=== PATIENT | male | born 1935 | race Caucasian/White ===

== ENCOUNTER 2021-05-07 08:12 | Emergency (ER) | payer MEDICARE ==
[~2021-05-07] VITALS: Ht 182.9 cm; Wt 81.8 kg
[2021-05-07] MEDS ORDERED: ELIQUIS5 MG PO (08:45)
[2021-05-07] MEDS ORDERED: PRESERVISION PO (08:45)
[2021-05-07] MEDS ORDERED: SIMVASTATIN10 MG PO (08:46)
[2021-05-07] MEDS ORDERED: FUROSEMIDE20 MG PO (08:46)
[2021-05-07] MEDS ORDERED: LISINOPRIL10 MG PO (08:46)
[2021-05-07] MEDS ORDERED: METOPROL TAR25 MG PO (08:47)
[2021-05-07] MEDS ORDERED: GLUCOSAMINE500 M3 PO (08:47)
[2021-05-07] MEDS ORDERED: PROTONIX40 M2 PO (08:48)
[2021-05-07 08:53] LABS: HEMATOCRIT 25.5 % (39.0-50.0); MEAN CORPUSCULAR HGB 38.5 pG CALC (26.0-32.0); MEAN CORPUSCULAR HGB CONC 32.2 g/dL CAL (32.0-36.0); RED BLOOD COUNT 2.13 mill/uL (4.70-6.10); RED CELL DISTRI WIDTH 22.2 % (11.5-15.5)
[2021-05-07 09:00] LABS: HEMOGLOBIN 8.2 g/dl (14.0-18.0); IMMATURE GRANULOCYTES 6.3 % (0.0-5.0); MEAN CELL VOLUME 119.7 fL CALC (80.0-100.0); PLATELET COUNT 184 thou/uL (130-400)
[2021-05-07 09:01] LABS: MANUAL DIFFERENTIAL YES
[2021-05-07 09:24] LABS: PROTHROMBIN TIME 10.7 SECONDS (9.0-12.5)
[2021-05-07 09:32] LABS: BAND 4 % (0-8); NUCLEATED RED BLOOD CELL 1 /100WBC (0-1); PLATELET ESTIMATE NORMAL
[2021-05-07 09:33] LABS: SCHISTOCYTES FEW
[2021-05-07 09:35] LABS: ACANTHOCYTES FEW; TEAR DROP CELLS MODERATE
[2021-05-07 09:36] LABS: POIKILOCYTOSIS MODERATE
[2021-05-07 10:28] LABS: URINE BILIRUBIN - DIPSTICK NEGATIVE (NEGATIVE); URINE BLOOD DIPSTICK NEGATIVE (NEGATIVE); URINE COLOR YELLOW; URINE GLUCOSE - DIPSTICK NEGATIVE (NEGATIVE); URINE KETONE NEGATIVE (NEGATIVE); URINE LEUK ESTERASE NEGATIVE (NEGATIVE); URINE NITRITE - DIPSTICK NEGATIVE (Negative); URINE PROTEIN - DIPSTICK NEGATIVE (NEG-TRACE); URINE SPECIFIC GRAVITY <=1.005; URINE UROBILINOGEN - DIPSTICK 0.2 E.U./dL (0.2)
[2021-05-07 10:47] LABS: ALBUMIN 3.6 g/dL (3.2-5.0); ALKALINE PHOSPHATASE 83 u/l (38-126); BUN 19 mg/dL (8-23); BUN/CREATININE RATIO 17 (12-20 (CALC)); CARBON DIOXIDE 24 mmol/l (22-30); CHLORIDE 100 mmol/l (95-108); CREATININE 1.1 mg/dL (0.7-1.3); GFR > 60 ML/MIN (>=60 (CALC)); GFR FOR AFR.AMER. > 60 ML/MIN (>=60 (CALC)); SGOT/AST 26 u/l (19-48); SODIUM 132 mmol/l (137-146); TOTAL PROTEIN 6.4 g/dL (6.3-8.2)
[2021-05-07 10:55] LABS: ANION GAP 12 (6-22 (CALC)); BILIRUBIN, TOTAL 3.3 mg/dL (0.0-1.4); POTASSIUM 4.4 mmol/l (3.5-5.1)
[2021-05-07] MEDS ORDERED: FEOSOL45 MG PO (11:53)
[2021-05-07 12:01] VITALS: BP 151/68
== END 2021-05-07 12:02 | disposition home or self-care (01) ==
LOC: ED 08:12
PROVIDERS: Emergency Medicine
DX: S80.12XA Contusion of left lower leg, initial encounter (principal); S30.0XXA Contusion of lower back and pelvis, initial encounter; D64.9 Anemia, unspecified; R53.1 Weakness; I48.91 Unspecified atrial fibrillation; I10 Essential (primary) hypertension; X58.XXXA Exposure to other specified factors, initial encounter; Z79.01 Long term (current) use of anticoagulants; Z86.73 Personal history of transient ischemic attack (TIA), and cerebral infarction without residual deficits

== ENCOUNTER 2021-07-30 09:42 | Emergency (ER) | payer MEDICARE ==
[~2021-07-30] VITALS: Ht 182.9 cm; Wt 77.3 kg
[~2021-07-30 09:42] MED LIST: ELIQUIS5 MG PO; FEOSOL45 MG PO; FUROSEMIDE20 MG PO; GLUCOSAMINE500 M3 PO; LISINOPRIL10 MG PO; METOPROL TAR25 MG PO; PRESERVISION PO; PROTONIX40 M2 PO; SIMVASTATIN10 MG PO
[2021-07-30 09:55] VITALS: BP 94/63
[2021-07-30] MEDS ORDERED: KEFLEX500 MG PO (13:14)
== END 2021-07-30 13:43 | disposition home or self-care (01) ==
LOC: ED 09:42
PROC: 0HQKXZZ Repair Right Lower Leg Skin, External Approach (ICD-10-PCS; principal; 2021-07-30)
DX: S81.811A Laceration without foreign body, right lower leg, initial encounter (principal); I10 Essential (primary) hypertension; I48.91 Unspecified atrial fibrillation; W22.09XA Striking against other stationary object, initial encounter; Y93.G1 Activity, food preparation and clean up; Y92.000 Kitchen of unspecified non-institutional (private) residence as the place of occurrence of the external cause; Z79.01 Long term (current) use of anticoagulants; Z86.73 Personal history of transient ischemic attack (TIA), and cerebral infarction without residual deficits

== ENCOUNTER 2021-08-09 09:53 | Emergency (ER) | payer MEDICARE ==
[~2021-08-09] VITALS: Ht 182.9 cm; Wt 77.2 kg
[~2021-08-09 09:53] MED LIST changes: +KEFLEX500 MG PO
[2021-08-09 10:30] VITALS: BP 117/51
[2021-08-09 10:31] VITALS: BP 117/51
== END 2021-08-09 10:31 | disposition home or self-care (01) ==
LOC: ED 09:53
DX: S81.811D Laceration without foreign body, right lower leg, subsequent encounter (principal); X58.XXXD Exposure to other specified factors, subsequent encounter; I10 Essential (primary) hypertension; Z86.73 Personal history of transient ischemic attack (TIA), and cerebral infarction without residual deficits

== ENCOUNTER 2022-05-28 23:16 | Observation (INO) | payer MEDICARE ==
[~2022-05-28] VITALS: Ht 182.9 cm; Wt 75.0 kg
[2022-05-28 23:27] VITALS: BP 110/59
[2022-05-28 23:31] VITALS: BP 123/83
--- NOTE | 2022-05-28 23:35 | NUR ---
PT TO ROOM 8 FROM LOBBY VIA WHEELCHAIR. ACTIVE BLEEDING FROM CROWN OF HEAD WITH SATURATED BLOOD GAUZE AND BLOODY TOWELS FROM HOME. PHYSICIAN TO BEDSIDE.
[2022-05-28] MEDS ORDERED: XARELTO10 MG PO (23:39)
[2022-05-29] VITALS (12 sets, daily range): BP systolic 98–155; BP diastolic 58–78
--- NOTE | 2022-05-29 | NUR ---
LACERATIONS REPAIRED - ASSISTED PHYSICIAN - 11 CM AREA WITH 6 CM AREA IRREGULARLY SHAPED. CLEANED WITH NS, PEDRO PLACED TO CROWN OF HEAD BY PHYSICIAN. PRESSURE BANDAGE PLACED WITH GAUZE, DAVIS, AND HEATHER WRAP BY THIS NURSE. PT TOLERATED WELL
--- NOTE | 2022-05-29 00:35 | NUR ---
LARGE SKIN TEAR TO L ELBOW CLEANED AND DERMABOND APPLIED BY PHYSICIAN. NON ADHERENT BANDAGE AND DAVIS PLACED TO SITE. PT TOLERATED WELL. PRESSURE DRESSING REMOVED FROM HEAD. SMALL AMT OF BLEEDING NOTED. PHYSICIAN ADDED 3 PEDRO. HEAD AND FACE CLEANED OF DRIED BLOOD AND PRESSURE DRESSING REPLACED. PT TOLERATED WELL.
[2022-05-29 00:42] LABS: BASO% 1.4 % (0-3); EOS% 1.4 % (0-8); HEMATOCRIT 26.7 % (39.0-50.0); HEMOGLOBIN 8.8 g/dl (14.0-18.0); IMMATURE GRANULOCYTES 1.5 % (0.0-5.0); LYMPH% 15.1 % (15-41); MEAN CELL VOLUME 114.1 fL CALC (80.0-100.0); MEAN CORPUSCULAR HGB 37.6 pG CALC (26.0-32.0); MONO% 6.6 % (2-13); NEUT# 8.65 thou/uL (1.82-7.42); RED BLOOD COUNT 2.34 mill/uL (4.70-6.10); RED CELL DISTRI WIDTH 21.6 % (11.5-15.5)
[2022-05-29 00:45] LABS: ALBUMIN 4.3 g/dL (3.2-5.0); ALKALINE PHOSPHATASE 86 u/l (38-126); ANION GAP 17 (6-22 (CALC)); BUN 19 mg/dL (8-23); BUN/CREATININE RATIO 16 (12-20 (CALC)); CARBON DIOXIDE 21 mmol/l (22-30); CHLORIDE 99 mmol/l (95-108); CREATININE 1.2 mg/dL (0.7-1.3); GFR FOR AFR.AMER. > 60 ML/MIN (>=60 (CALC)); GFR OTHER RACES 57 ML/MIN (>=60 (CALC)); POTASSIUM 4.4 mmol/l (3.5-5.1); SGOT/AST 30 u/l (19-48); SODIUM 133 mmol/l (137-146); TOTAL PROTEIN 6.7 g/dL (6.3-8.2)
[2022-05-29 00:51] LABS: BILIRUBIN, TOTAL 1.6 mg/dL (0.0-1.4)
[2022-05-29 01:17] LABS: INTERNATIONAL NORMALIZED RATIO 1.2 RATIO (0.7-1.3); PROTHROMBIN TIME 11.6 SECONDS (9.0-12.5)
--- NOTE | 2022-05-29 03:14 | NUR ---
TELEBOX 7 IN USE
--- NOTE | 2022-05-29 03:36 | NUR ---
Admission Note Report Given to: NADEEN CHILEL Transported by: Wheelchair X Stretcher Transported with: X Nurse Transporter X Patent IV O2 X Multi Punch Operator Location: ICU X MS2
--- NOTE | 2022-05-29 04:07 | NUR ---
PATIENT ALERT AND ORIENTED X3, ABLE TO MAKE NEEDS KNOWN. PATIENT ARRIVED TO FLOOR FROM ED VIA STRETCHER AT 0350. VS TAKEN, BELONGINGS SECURED AT BEDSIDE. LEFT AC IV AND TELEMETRY INTACT. PATIENT HAS GAUZE WRAP TO RIGHT ELBOW DUE TO A SKIN TEAR CAUSED BY HIS FALL AT HOME. PATIENT ALSO PRESENTS TO FLOOR WITH BRUISE TO LEFT SIDE OF HEAD AND BANDAGE WRAP. PER ELECTROGALVANIZING MACHINE OPERATOR, PATIENT RECEIVED PEDRO TO HEAD LACERATION IN ER.
[2022-05-29] MEDS ORDERED: XARELTO20 MG PO (08:26)
[2022-05-29] MEDS ORDERED: TOPROL XL25 M1 PO (08:26)
[2022-05-29 10:38] LABS: BASO% 1.1 % (0-3); EOS% 0.4 % (0-8); HEMATOCRIT 25.8 % (39.0-50.0); HEMOGLOBIN 8.8 g/dl (14.0-18.0); IMMATURE GRANULOCYTES 1.9 % (0.0-5.0); LYMPH% 9.6 % (15-41); MEAN CELL VOLUME 115.7 fL CALC (80.0-100.0); MEAN CORPUSCULAR HGB 39.5 pG CALC (26.0-32.0); MEAN CORPUSCULAR HGB CONC 34.1 g/dL CAL (32.0-36.0); NEUT# 6.61 thou/uL (1.82-7.42); RED BLOOD COUNT 2.23 mill/uL (4.70-6.10); RED CELL DISTRI WIDTH 21.4 % (11.5-15.5)
== END 2022-05-29 14:05 | disposition home or self-care (01) ==
LOC: ED 23:16 → ED-I 05-29 00:50 → ED 05-29 01:02 → MS2 05-29 01:03
PROVIDERS: Emergency Medicine; Nurse Practitioner Family; ADMIT Internal Medicine; ATTEND Internal Medicine
PROC: 0HQ0XZZ Repair Scalp Skin, External Approach (ICD-10-PCS; principal; 2022-05-29)
PROC: 0HQDXZZ Repair Right Lower Arm Skin, External Approach (ICD-10-PCS; 2022-05-29)
DX: S01.01XA Laceration without foreign body of scalp, initial encounter (principal); S51.011A Laceration without foreign body of right elbow, initial encounter; I48.91 Unspecified atrial fibrillation; I11.0 Hypertensive heart disease with heart failure; I50.9 Heart failure, unspecified; W18.2XXA Fall in (into) shower or empty bathtub, initial encounter; Y93.E1 Activity, personal bathing and showering; Y92.002 Bathroom of unspecified non-institutional (private) residence as the place of occurrence of the external cause; Z87.891 Personal history of nicotine dependence; Z86.73 Personal history of transient ischemic attack (TIA), and cerebral infarction without residual deficits; Z79.01 Long term (current) use of anticoagulants
CPT/HCPCS: J1956

== ENCOUNTER 2022-06-15 12:25 | Emergency (ER) | payer MEDICARE ==
[~2022-06-15 12:25] MED LIST changes: +TOPROL XL25 M1 PO; +XARELTO10 MG PO; +XARELTO20 MG PO
== END 2022-06-15 13:37 | disposition left against medical advice (07) ==
LOC: ED 12:25 → LWOBS 13:27
DX: Z53.21 Procedure and treatment not carried out due to patient leaving prior to being seen by health care provider (principal)

== ENCOUNTER 2022-06-16 10:17 | Emergency (ER) | payer MEDICARE ==
[~2022-06-16] VITALS: Ht 182.9 cm; Wt 75.2 kg
[2022-06-16 10:57] VITALS: BP 107/68
== END 2022-06-16 11:15 | disposition home or self-care (01) ==
LOC: ED 10:17
DX: S01.01XD Laceration without foreign body of scalp, subsequent encounter (principal); X58.XXXD Exposure to other specified factors, subsequent encounter; I11.0 Hypertensive heart disease with heart failure; I50.9 Heart failure, unspecified; I48.91 Unspecified atrial fibrillation; Z86.73 Personal history of transient ischemic attack (TIA), and cerebral infarction without residual deficits

== ENCOUNTER 2022-06-24 13:05 | Emergency (ER) | payer MEDICARE ==
[~2022-06-24] VITALS: Ht 182.9 cm; Wt 74.2 kg
[2022-06-24 13:22] VITALS: BP 85/60
[2022-06-24 13:23] VITALS: BP 90/53
[2022-06-24 13:31] VITALS: BP 76/42
[2022-06-24 13:34] VITALS: BP 117/98
[2022-06-24 13:44] VITALS: BP 117/98
== END 2022-06-24 13:51 | disposition home or self-care (01) ==
LOC: ED 13:05
DX: S01.01XD Laceration without foreign body of scalp, subsequent encounter (principal); I11.0 Hypertensive heart disease with heart failure; I50.9 Heart failure, unspecified; I48.91 Unspecified atrial fibrillation; W19.XXXD Unspecified fall, subsequent encounter; Z86.73 Personal history of transient ischemic attack (TIA), and cerebral infarction without residual deficits

== ENCOUNTER 2022-08-19 09:41 | Emergency (ER) | payer MEDICARE ==
[~2022-08-19] VITALS: Ht 182.9 cm; Wt 77.1 kg
[2022-08-19 10:01] VITALS: BP 166/77
[2022-08-19 10:33] VITALS: BP 166/77
== END 2022-08-19 10:45 | disposition home or self-care (01) ==
LOC: ED 09:41
DX: S41.111A Laceration without foreign body of right upper arm, initial encounter (principal); I11.0 Hypertensive heart disease with heart failure; I50.9 Heart failure, unspecified; Z79.01 Long term (current) use of anticoagulants; Z86.73 Personal history of transient ischemic attack (TIA), and cerebral infarction without residual deficits; X58.XXXA Exposure to other specified factors, initial encounter